=== PATIENT | female | born 1950 | race Caucasian/White ===

== ENCOUNTER → 2020-08-07 | Outpatient (CLI) | payer MEDICARE | END | disposition home or self-care (01) | LOC: CFH 15:37 | PROVIDERS: ATTEND Nurse Practitioner Family | DX: N63.24 Unspecified lump in the left breast, lower inner quadrant (principal) | CPT/HCPCS: 76642; 77066; G0279 ==

== ENCOUNTER → 2020-08-21 | Outpatient (CLI) | payer MEDICARE ==
[~2020-08-21] MED LIST: LIDOCAINE 1%, 20ML ONE; SODIUM BICARBONATE 4.2%, 5ML ONE
== END | disposition home or self-care (01) ==
LOC: CFH 08:46
PROVIDERS: ATTEND Nurse Practitioner Family
DX: N63.24 Unspecified lump in the left breast, lower inner quadrant (principal); D05.12 Intraductal carcinoma in situ of left breast
CPT/HCPCS: 19083; 19084; 88305; 88341; 88342; 77065

== ENCOUNTER → 2020-09-22 | Outpatient (CLI) | payer MEDICARE ==
[~2020-09-22] MED LIST changes: +BIOT25005 PO; +CALC600T60 PO; +CHOL10003 PO; +DIPH25CA84 PO; -LIDOCAINE 1%, 20ML ONE; +LISI-170 PO; +METF10007 PO; +MULT-449 PO; +NAPR220C2 PO; +PENI250T91 PO; -SODIUM BICARBONATE 4.2%, 5ML ONE
[2020-09-22 15:14] LABS: ALANINE AMINOTRANSFERASE 20 U/L (12-78); ALBUMIN 3.7 g/dL (3.4-5.0); ANION GAP 6 mmol/L (5-15); CALCIUM 10.2 mg/dL (8.5-10.1); CHLORIDE 105 mmol/L (98-107)
[2020-09-22 15:17] LABS: ALKALINE PHOSPHATASE 81 U/L (45-117); BILIRUBIN,TOTAL 0.4 mg/dL (0.2-1.0); CREATININE 0.76 mg/dL (0.55-1.02); TOTAL PROTEIN 6.9 g/dL (6.4-8.2)
== END | disposition home or self-care (01) ==
LOC: STAR 13:30
PROVIDERS: ATTEND Surgery
DX: Z01.812 Encounter for preprocedural laboratory examination (principal); D05.12 Intraductal carcinoma in situ of left breast; R00.0 Tachycardia, unspecified; Z20.828 Contact with and (suspected) exposure to other viral communicable diseases
CPT/HCPCS: 36415; 80053; 87635; 93005

== ENCOUNTER 2020-09-28 07:13 | Day surgery (SDC) | payer MEDICARE ==
[~2020-09-28] VITALS: Ht 166.4 cm; Wt 80.7 kg
[~2020-09-28 07:13] MED LIST changes: +BUPIVACAINE/PF 0.5% ONE; +EPINEPHRINE 1 MG/ML, 1ML ONE; +ISOSULFAN BLUE 10 MG/ML, 5ML IV ONE
[2020-09-28] MEDS ORDERED: FENTANYL PF 250 MCG/5ML ONE (08:56)
[2020-09-28] MEDS ORDERED: MIDAZOLAM 1 MG/ML, 2ML ONE (08:56)
[2020-09-28] MEDS ORDERED: LIDOCAINE GEL 2%, 5ML ONE (08:57)
[2020-09-28 08:59] VITALS: BP 167/99
[2020-09-28] MEDS ORDERED: hydrALAzine 20 MG/ML, 1ML IV PRN (09:00)
[2020-09-28] MEDS ORDERED: DIPHENHYDRAMINE 50 MG/ML, 1ML IVPush PRN (09:00)
[2020-09-28] MEDS ORDERED: MEPERIDINE/PF 25MG/0.5ML IVPush PRN (09:00)
[2020-09-28] MEDS ORDERED: HYDROmorphone 1 MG/ML, 1ML INJ IVPush PRN (09:00)
[2020-09-28] MEDS ORDERED: CHLORHEXIDINE 15 ML UDC MM ONE (09:00)
[2020-09-28] MEDS ORDERED: PROMETHAZINE 25 MG/ML, 1ML IVPush PRN (09:00)
[2020-09-28] MEDS ORDERED: HYDROcodone/APAP 7.5-325MG/15ML UDC PO PRN (09:00)
[2020-09-28] MEDS ORDERED: HALOPERIDOL 5 MG/ML IV PRN (09:00)
[2020-09-28] MEDS ORDERED: ESMOLOL 100 MG/10 ML ONE (09:39)
[2020-09-28] MEDS ORDERED: LACTATED RINGERS 1,000 ML IV SCH (10:00)
[2020-09-28] MEDS ORDERED: FENTANYL PF 100 MCG/2ML ONE ×2 (10:32→11:46)
[2020-09-28] MEDS ORDERED: CEFAZOLIN 1,000 MG ONE (10:53)
[2020-09-28] MEDS ORDERED: DEXAMETHASONE 4 MG/ML, 1ML ONE (10:53)
[2020-09-28] MEDS ORDERED: ROCURONIUM 10MG/ML,5ML ONE ×2 (10:53)
[2020-09-28] MEDS ORDERED: ONDANSETRON 2MG/ML, 2ML ONE (10:53)
[2020-09-28] MEDS ORDERED: NEOSTIGMINE 1 MG/ML, 10ML ONE (10:53)
[2020-09-28] MEDS ORDERED: PROPOFOL 10 MG/ML, 20ML ONE (10:53)
[2020-09-28] MEDS ORDERED: GLYCOPYRROLATE 0.2MG/1ML, 5ML ONE (10:53)
[2020-09-28] MEDS ORDERED: SUCCINYLCHOLINE 20 MG/ML, 10ML ONE (10:53)
[2020-09-28] MEDS ORDERED: hydrALAzine 20 MG/ML, 1ML ONE (11:46)
[2020-09-28] MEDS ORDERED: HYDROcodone/APAP 7.5-325MG/15ML UDC ONE (11:46)
[2020-09-28] MEDS: FENTANYL PF 100 MCG/2ML IV PRN ×2 (11:52→12:10)
[2020-09-28] MEDS ORDERED: LABETALOL 5MG/ML, 20ML ONE (12:11)
[2020-09-28] MEDS: LABETALOL 5MG/ML, 20ML IV PRN ×2 (12:14→12:23)
== END 2020-09-28 13:35 | disposition home or self-care (01) ==
LOC: OUT 07:13 → EDSTATUS 10:00 → OUT 13:35
PROVIDERS: ATTEND Surgery
DX: C50.312 Malignant neoplasm of lower-inner quadrant of left female breast (principal); C77.3 Secondary and unspecified malignant neoplasm of axilla and upper limb lymph nodes; E11.65 Type 2 diabetes mellitus with hyperglycemia; I10 Essential (primary) hypertension; F12.90 Cannabis use, unspecified, uncomplicated; Z79.84 Long term (current) use of oral hypoglycemic drugs; Z79.899 Other long term (current) drug therapy; Z87.891 Personal history of nicotine dependence; Z88.5 Allergy status to narcotic agent; Z88.8 Allergy status to other drugs, medicaments and biological substances; Z98.890 Other specified postprocedural states; Z82.49 Family history of ischemic heart disease and other diseases of the circulatory system
CPT/HCPCS: 19307; 38792; 76098; 82962; 88305; 88307; 88333; A9541; C1729; J0171; J0330; J0360; J0690; J1100; J2250; J2405; J2704; J2710; J3010; J7120